=== PATIENT | female | born 1960 | race Caucasian/White ===

== ENCOUNTER 2020-09-22 07:49 | Emergency (ER) | payer OTHER ==
[~2020-09-22 07:49] MED LIST: BENADRYL25 MG PO; CARAFATE1 GM PO; CELEXA40 MG PO; CIMETIDINE400 MG PO; DUONEB 2.5-0.5M1 AMP NEB; LAXATIVE OF CHOICE; LIPITOR10 MG PO; LISINOPRIL-HCT1 EACH PO; PERCOCET 5-3251 EACH PO; PHENERGAN25 M1 PO; PROTONIX40 MG PO; TUMS500 MG PO; TYLENOL325 M1 PO; XARELTO10 MG PO; ZOFRAN4 MG PO
[2020-09-22 08:10] LABS: BASOPHIL 0.8 % (0-2); EOSINOPHIL 0.2 % (0-5); HCT 50.4 % (37.0-47.0); HGB 14.1 g/dl (12.5-16.0); LYMPHOCYTE 34.4 % (15-48); MCV 103.7 fL (78.0-100.0); MONOCYTE 6.2 % (0-12); MPV 10.6 fL (6.0-9.5); NEUTROPHIL 50.7 % (41-80); NRBC 0.3; PLT 219 K/uL (150-400); RBC 4.86 M/uL (4.20-5.40); RDW 13.4 % (11.5-14.0)
[2020-09-22 08:25] LABS: INR 1.43 (0.9-1.2); PROTHROMBIN TIME 16.6 SECONDS (11.4-13.6)
[2020-09-22 08:43] LABS: ALBUMIN 3.1 g/dL (3.4-5.0); BILIRUBIN - TOTAL 0.3 mg/dL (0.2-1.0); BUN/CREAT RATIO (CALC) 14.3 RATIO; CREATININE 1.4 mg/dL (0.51-0.95); GLOBULIN (CALCULATION) 3.6 g/dL; POTASSIUM 3.7 mmol/L (3.5-5.1); TOTAL PROTEIN 6.7 g/dL (6.4-8.2)
[2020-09-22 09:25] LABS: LACTIC ACID 14.4 mmol/L (0.4-1.9)
== END 2020-09-22 11:44 | disposition other institution (70) ==
LOC: FER 07:49
PROVIDERS: Emergency Medicine
DX: I46.9 Cardiac arrest, cause unspecified (principal); A41.9 Sepsis, unspecified organism; J18.9 Pneumonia, unspecified organism; I21.4 Non-ST elevation (NSTEMI) myocardial infarction; J96.90 Respiratory failure, unspecified, unspecified whether with hypoxia or hypercapnia; I45.10 Unspecified right bundle-branch block; I49.3 Ventricular premature depolarization; I10 Essential (primary) hypertension; Z20.822 Contact with and (suspected) exposure to COVID-19
CPT/HCPCS: 31500; 36415; 36600; 71045; 74018; 80053; 82550; 82553; 82803; 83605; 84484; 85025; 85610; 85730; 87040; 92950; 93005; 96365; 96366; 96367; 96375; J0171; J0456; J0696; J1644; J2704; J7030; J7050; J7060; U0002

== ENCOUNTER 2020-11-04 13:32 | Emergency (ER) | payer OTHER ==
[2020-11-04 16:54] LABS: BASOPHIL 0.4 % (0-2); EOSINOPHIL 0.5 % (0-5); HCT 39.9 % (37.0-47.0); HGB 12.7 g/dl (12.5-16.0); LYMPHOCYTE 13.9 % (15-48); MCH 30.8 pg (25.0-31.0); MCHC 31.8 g/dL (32.0-36.0); MCV 96.6 fL (78.0-100.0); MONOCYTE 5.2 % (0-12); MPV 11.1 fL (6.0-9.5); NEUTROPHIL 79.5 % (41-80); NRBC 0; PLT 274 K/uL (150-400); RBC 4.13 M/uL (4.20-5.40); RDW 15.5 % (11.5-14.0); WBC 9.3 K/uL (4.0-10.5)
[2020-11-04 17:04] LABS: ALBUMIN 3.8 g/dL (3.4-5.0); BILIRUBIN - TOTAL 1.2 mg/dL (0.2-1.0); BUN/CREAT RATIO (CALC) 11.8 RATIO; CREATININE 1.61 mg/dL (0.51-0.95); GLOBULIN (CALCULATION) 3.7 g/dL; TOTAL PROTEIN 7.5 g/dL (6.4-8.2)
== END 2020-11-04 19:10 | disposition home or self-care (01) ==
LOC: FER 13:32
PROVIDERS: Emergency Medicine
DX: R51.9 Headache, unspecified (principal); I12.9 Hypertensive chronic kidney disease with stage 1 through stage 4 chronic kidney disease, or unspecified chronic kidney disease; N18.9 Chronic kidney disease, unspecified; I48.91 Unspecified atrial fibrillation
CPT/HCPCS: 36415; 70450; 80053; 85025; J1170; J2405

== ENCOUNTER 2021-01-07 21:51 | Emergency (ER) | payer OTHER ==
[2021-01-07 23:05] LABS: BASOPHIL 0.5 % (0-2); HCT 35.9 % (37.0-47.0); HGB 11.6 g/dl (12.5-16.0); LYMPHOCYTE 23.2 % (15-48); MCH 30.2 pg (25.0-31.0); MCHC 32.3 g/dL (32.0-36.0); MCV 93.5 fL (78.0-100.0); MPV 10.5 fL (6.0-9.5); NEUTROPHIL 65.8 % (41-80); NRBC 0; PLT 221 K/uL (150-400); RBC 3.84 M/uL (4.20-5.40); RDW 13.2 % (11.5-14.0); WBC 7.6 K/uL (4.0-10.5)
[2021-01-07 23:17] LABS: INR 1.05 (0.9-1.2)
[2021-01-07 23:29] LABS: ALBUMIN 3.2 g/dL (3.4-5.0); BILIRUBIN - TOTAL 0.5 mg/dL (0.2-1.0); BUN/CREAT RATIO (CALC) 10.8 RATIO; CREATININE 1.85 mg/dL (0.51-0.95); GLOBULIN (CALCULATION) 3.6 g/dL; POTASSIUM 3.7 mmol/L (3.5-5.1); TOTAL PROTEIN 6.8 g/dL (6.4-8.2)
== END 2021-01-07 23:55 | disposition home or self-care (01) ==
LOC: FER 21:51
PROVIDERS: Emergency Medicine
DX: S80.11XA Contusion of right lower leg, initial encounter (principal); I10 Essential (primary) hypertension; E66.9 Obesity, unspecified; Z86.711 Personal history of pulmonary embolism; Z79.01 Long term (current) use of anticoagulants
CPT/HCPCS: 36415; 80053; 85025; 85610; 93005